=== PATIENT | male | born 1940 | race Caucasian/White ===

== ENCOUNTER → 2024-04-12 07:38 | Outpatient (REF) | payer MEDICARE, OTHER, SELFPAY | LOC: DHCBC/DCA 07:38 | PROVIDERS: ATTENDING PHYSICIAN Internal Medicine; FAMILY PHYSICIAN Family Medicine | DX: I25.10 Atherosclerotic heart disease of native coronary artery without angina pectoris (principal) | CPT/HCPCS: 78452; 93017; A9500 ==

== ENCOUNTER 2024-04-17 14:29 | Emergency (ER) | payer MEDICARE, OTHER, SELFPAY ==
[2024-04-17 14:33] VITALS: BP 153/89
[2024-04-17 14:44] VITALS: BMI 26.5
[2024-04-17 15:00] VITALS: BP 115/71
[2024-04-17 15:14] LABS: % Basophils 0.7 % (0-2); % Eosinophils 2.2 % (0-6); % Immature Granulocytes 0.5 % (0-0.5); % Lymphocytes 17.9 % (20.5-51.1); % Monocytes 8.5 % (1.7-9.3); % Neutrophils 70.2 % (42.2-75.2); Absolute Basophils 0.1 10^3/uL (0-0.2); Absolute Eosinophils 0.2 10^3/uL (0-0.7); Absolute Lymphocytes 1.4 10^3/uL (1.2-3.4); Absolute Monocytes 0.7 10^3/uL (0.1-0.6); Absolute Neutrophils 5.6 10^3/uL (1.4-6.5); Hematocrit 43.4 % (39.0-52.0); Hemoglobin 15.2 g/dL (13.0-18.0); Mean Corpuscular Hgb 31.3 pg (27.0-31.0); Mean Corpuscular Volume 89.5 fL (80.0-94.0); Mean Platelet Volume 10.7 fL (7.4-10.4); Nucleated Red Blood Cells % 0 % (-); Platelet Count 255 10^3/uL (130-400); Red Blood Cell Count 4.85 10^6/uL (4.70-6.10); Red Cell Dist. Width 13.9 % (11.5-14.5)
[2024-04-17 15:43] LABS: ALT (SGPT) 28 U/L (0-50); AST (SGOT) 40 U/L (17-59); Albumin 4.4 g/dl (3.5-5.0); Alkaline Phosphatase 102 U/L (38-126); Blood Urea Nitrogen 16 mg/dl (9-20); Calcium 9.9 mg/dl (8.4-10.2); Carbon Dioxide 22 mmol/L (22-30); Chloride 103 mmol/L (98-107); Estimated Creatinine Clearance 66 ml/min; Glucose 214 mg/dl (70-99); Potassium 3.9 mmol/L (3.5-5.1); Sodium 136 mmol/L (135-145); eGFR > 60.00
[2024-04-17 15:53] LABS: Troponin I < 0.012 ng/ml
--- NOTE | 2024-04-17 16:09 | ED.GENMED ---
History of Present Illness
General
Chief Complaint: Chest Pain
Source: patient and spouse
Exam Limitations: none
Time Seen by Provider: 04/17/24 14:49
Nursing documentation reviewed up to this point in time: agreed with
History of Present Illness
History of Present Illness:
83-year-old male with a past medical history of CAD status post stents, hypertension, hyperlipidemia who presents to the emergency department with his for evaluation of tachycardia and chest pain. Patient notably has been having intermittent
chest pains for almost a year now. He has had an extensive outpatient workup�initially was following with Dr. Peterson for cardiology but recently has made switch to Dr. Coughlin. He had a cardiac catheterization 07/25/2023 which showed no
flow-limiting disease. Recently since switched to Dr. Coughlin's care because he is having persistent chest pains he had a nuclear stress test 04/12/2024 which was apparently reassuring; he is scheduled to have an echocardiogram he says next week. He
is also supposed to have pulmonary function testing. He describes his episodes as tightness in the chest of variable duration. Occasionally exertional but often nonexertional. No consistent trigger noted. He had been on nitroglycerin for his
pain but it was making him dizzy and so he was started instead on long-acting nitrate. Today he comes to the emergency room after one of his typical episodes of chest pain that was accompanied by marked tachycardia. Patient says that he was
sitting at rest and had onset of tightness in his chest consistent with episodes he has been having for the past year. He says that he checked his vital signs during the episode as he typically does. Today instead of a normal heart rate and blood
pressure he noted that his blood pressure was normal but his heart rate was 140. For this reason he came to the emergency room. He is currently chest pain-free and asymptomatic on my assessment. He did not have any associated nausea or vomiting,
diaphoresis. Denies associated dyspnea. Denies any dizziness. Denies any other complaints. His EKG on arrival showed atrial flutter�he denies any known history of A-fib or flutter.
Past History
Past History
ED Past Medical History: CAD, GERD, Hypercholesterolemia and Other (Recurrent small bowel obstructions.)
ED Past Surgical History: Bowel resection (Sigmoid colon resection for perforated diverticulitis.) and Other (Laparoscopic lysis of adhesions July 2011)
Social History
Tobacco: Former smoker
Alcohol: Occasional
Drug: None
Personal:
Living: with family
Employment: Employed
Family History
Family History: Other
Review of Systems
Review of Systems
All Other Systems: ROS reviewed and negative except as documented in HPI and ROS
Constitutional: Denies fever or chills
Respiratory: Denies cough or trouble breathing
Cardiac: Reports chest pain; Denies diaphoresis, palpitations or syncope
ABD/GI: Denies abdominal pain, nausea or vomiting
: Denies flank pain
Musculoskeletal: Denies neck pain or back pain
Neurological: Denies dizzy or headache
Phy Exam
Physical Exam
Physical Exam:
General: Awake, alert, oriented x3; no acute distress
Head: Normocephalic, atraumatic
Eyes: Conjunctiva normal, sclera anicteric
Throat: Airway intact, handling secretions
Neck: Trachea midline, supple without meningismus
Lungs: Clear to auscultation bilaterally, no wheezing, rales, rhonchi
Heart: Regular rate and rhythm, no murmurs, gallops, or rubs
Abd: Soft, non distended, nontender
Neuro: Cranial nerves grossly intact, speech fluid
Skin: no rash
Extremities: No edema in extremities, equal pulses in all extremities
Scores
Heart Failure Risk
Heart Failure Risk Score: Not Applicable
Heart Score for Chest Pain Patients
STEMI patient?: No
History: Slightly or Non-Suspicious
ECG: Normal
Age: >/= 65 years
Risk Factors: >/= 3 Risk Factors or History of CAD
Troponin: </= Normal Limit
Heart Score for Chest Pain Patients: 4
Heart Score Risk: 20.3% MACE over next 6 weeks
Withdrawal Assessment of Alcohol
Withdrawal Assessment Completed?: Not applicable
Course
Orders/Labs/Results
Orders:
Orders
04/17/24
Electrocardiogram (*1) Stat
Comment: ALREADY DONE
04/17/24 14:30
ECG [Electrocardiogram (*1)] Urgent
Reason for Study: Chest Pain
EKG- Treatment ONCE
04/17/24 15:01
Complete Blood Count/With Diff Urgent
Comprehensive Metabolic Panel Urgent
Glycohemoglobin (HgbA1c) Urgent
TSH Urgent
Comment: TSH ADDED ON BY FLOOR 3:40PM 04-17-24
Troponin I Urgent
04/17/24 15:39
Add On- LAB Urgent
Tests Added?: TSH
04/17/24 16:07
Apixaban [Eliquis] 5 mg PO ONCE ONE
Metoprolol Xl [Toprol Xl] 12.5 mg PO NOW STA
04/17/24 16:45
Electrocardiogram (*1) Urgent
Reason for Study: Bradycardia / Tachycardia
EKG- Treatment ONCE
04/17/24 16:50
Add On- LAB Urgent
Tests Added?: hemoglobin A1C
Abnormal Lab Results
04/17/24
15:01
MCH 31.3 H pg
(27.0-31.0)
MPV 10.7 H fL
(7.4-10.4)
Absolute Monos (auto) 0.7 H 10^3/uL
(0.1-0.6)
Lymphocytes % 17.9 L %
(20.5-51.1)
Glucose 214 H mg/dl
(70-99)
04/17/24 15:01
04/17/24 15:01
Vital Signs
Pulse: 86
Resp Rate: 19
Initial and Last Documented VS:
Initial Vital Signs
Temp Pulse Resp BP Pulse Ox
36.7 C 160 20 153/89 96
04/17/24 14:33 04/17/24 14:33 04/17/24 14:33 04/17/24 14:33 04/17/24 14:33
Last Documented Vital Signs
Temp Pulse Resp BP Pulse Ox
36.7 C 86 19 126/92 96
04/17/24 14:33 04/17/24 17:36 04/17/24 17:36 04/17/24 16:33 04/17/24 14:33
MDM/Problems Addressed
Differential Diagnosis Includes:
Tachycardia: Atrial flutter, atrial fibrillation, SVT
Chest pain: Symptomatic atrial flutter, ACS; PE considered less likely with resolution of symptoms, no dyspnea, no pleuritic type pain
MDM/Problems Addressed:
83-year-old male presents to the emergency room for evaluation of chest pain which has been an ongoing issue for him now associated with tachycardia. Vital signs significant for marked tachycardia 150 in triage; he was hypertensive in triage blood
pressure normalized by my assessment. He also had some mild tachypnea which normalized. Pulse ox normal on room air. Afebrile. Physical exam as above. His triage EKG reviewed by me atrial flutter with 2:1 conduction. Heart rate in the 90s on
my assessment appears sinus on the monitor�repeat EKG confirms spontaneous conversion to sinus rhythm. He has no known history of A-fib/flutter. He is on metoprolol chronically for his blood pressure at 12.5 mg daily. Will check basic labs
including a CBC and a CMP. Will check troponin. Check thyroid studies. Will monitor on telemetry reassess after the above.
Labs reviewed: CBC and CMP no clinically significant abnormalities. He does have a random glucose of over 200�does not carry a diagnosis of diabetes. Will start on metformin. Will need to follow-up with PCP�I had a long discussion with the
patient about this. His troponin is undetectable. Has remained in sinus rhythm with no symptoms on reassessment. Case discussed with cardiology�recommended starting patient on Eliquis, increasing metoprolol to 25 mg daily. Can follow-up in the
office as an outpatient. He is already scheduled for an echocardiogram and further outpatient workup for his intermittent chest pains. Patient feels comfortable with this plan. Will provide a dose of Eliquis and metoprolol here and plan likely
for discharge.
Prior to discharge and prior to administration of medications here he did have a brief episode of atrial flutter that once again converted to sinus rhythm. Will provide meds as above and monitor telemetry.
Patient went into atrial fibrillation with RVR heart rate in the 130s confirmed on EKG. Gave him dose of metoprolol and Eliquis and will monitor.
Patient converted to sinus rhythm heart rate now 86. Rest of vitals normal. Patient asymptomatic. Stable for discharge�he will take an additional 12.5 mg p.o. metoprolol tonight tomorrow will start at 25 mg p.o. dose. He will start metformin.
Given Eliquis tonight, he will take next dose starting tomorrow morning. Provided referral to cardiology outpatient. I spoke to the patient and his at length about monitoring symptoms and heart rate and we spoke about return precautions.
They feel very comfortable with this plan. All questions were answered.
Chronic conditions affecting care:
CAD
Acute Exacerbation and/or Progression of Chronic Illness:
Acute hypertensive improved without intervention; give metoprolol for heart rate which should help with blood pressure as well, continue to monitor but no further emergent antihypertensives
Acute Exacerbation and/or Progression of Chronic Illness: HTN
*Pulse Oximetry
Patient hypoxic: no
*EKG
Interpreted by ED Provider?: Yes
Heart Rate: 150
Rate: tachycardiac
Rhythm: atrial flutter
[place]: normal axis
Interval: normal interval
QRS Pattern: normal QRS
Ischemia: non-specific ST changes
*Critical Care Note
Total Time (30-74mins, 75-104mins- exclusive of procedures): Not Applicable
Data Reviewed
Review of Other/Old Records Reveals: Labs and Records
Source: patient, records and spouse
Patient Management
Discussion with other providers: Sample Grinder (Discussed with cardiology)
ED Attending Note
-
Portions of this chart may have been created with voice recognition software.� Occasional wrong word or��sound alike� substitutions may have occurred due to the inherent limitations of voice recognition software.
Discharge Plan
Departure
Patient Disposition: Home (Routine Discharge)
Date of Disposition: 04/17/24
Time of Disposition: 17:35
Patient with high blood pressure during this ER visit?: Yes
Discharge Problem:
Atrial flutter, Chest pain, Hyperglycemia
Instructions: High Blood Sugar, Adult ED, Atrial Fibrillation and Atrial Flutter ED, Chest Pain CBC Follow Up
Prescriptions:
New
metoprolol succinate 25 mg tablet extended release 24 hr
25 mg PO DAILY Qty: 30 0RF
Eliquis 5 mg tablet
5 mg PO BID Qty: 60 0RF
metformin 500 mg tablet
500 mg PO DAILY Qty: 30 0RF
Discontinued
metoprolol succinate 25 mg Tablet Extended Release 24 Hr
12.5 mg PO DAILY
No Action
multivitamin [Daily Multi-Vitamin] 1 EACH tablet
1 ea PO DAILY
aspirin 81 MG tablet,delayed release (DR/EC)
81 mg PO DAILY
simvastatin 40 MG tablet
40 mg PO HS
polyethylene glycol 3350 255 GM powder
17 gm PO HS
docosahexaenoic acid-epa 1 CAP capsule
1 cap PO DAILY
famotidine [Pepcid AC] 20 MG tablet
20 mg PO PRN PRN (Reason: stomach pain)
Referrals:
Sathya Coughlin MD [Active] - Call in 1-3 days for appt
Mounika Rolon DO [Family Provider] -
Activity Restrictions/Additional Instructions:
Thank you for visiting the Emergency Department at [facility].
1. Please schedule a follow up appointment as directed. Call first thing tomorrow morning to make an appointment.
2. If indicated, please take your medications as instructed and indicated on discharge paperwork.
3. If any of your symptoms do not improve, or persist, or become more severe within 6-12 hours, please return to the emergency department for further care.
4. Please return to the emergency department if you develop a headache, neck pain/stiffness, fever greater than 100.4F, chest pain, shortness of breath, persistent nausea, vomiting, slurred speech, difficulty walking, numbness/tingling, weakness,
signs of infection or any other symptoms that are worrisome to you.
Please call [phone] if you have any questions.
Interventions
Interventions:
*Risk Screen - Suicide Last Done: 04/17/24 14:58
*General Assessment Last Done: 04/17/24 14:44
*Neglect/Abuse Screening Last Done: 04/17/24 14:44
ED- Fall Risk Assessment Last Done: 04/17/24 14:58
*ED COVID-19 Vaccine History Last Done: 04/17/24 14:44
ED- Cardiac Assessment Last Done: 04/17/24 14:44
Discharge Date and Time
Print Language: TRISTANIAN
[2024-04-17] MEDS: TOPROL XL 12.5 MG PO (16:30)
[2024-04-17] MEDS: ELIQUIS 5 MG PO (16:30)
[2024-04-17 16:33] VITALS: BP 126/92
[2024-04-17 17:00] VITALS: BP 122/81
[2024-04-17 17:31] LABS: TSH 0.69 uIU/ml (0.47-4.68)
[2024-04-18 10:50] LABS: Glycohemoglobin (HgbA1c) 5.9 % (4.0-5.6)
== END 2024-04-17 17:42 | disposition home or self-care (01) ==
LOC: EMR 14:29
PROVIDERS: EMERGENCY PHYSICIAN Emergency Medicine; FAMILY PHYSICIAN Family Medicine
DX: I48.92 Unspecified atrial flutter (principal); R73.9 Hyperglycemia, unspecified; R07.89 Other chest pain; Z87.891 Personal history of nicotine dependence
CPT/HCPCS: 99284; 80053; 83036; 84443; 84484; 85025; 93005

== ENCOUNTER → 2024-04-19 08:07 | Outpatient (REF) | payer MEDICARE, OTHER, SELFPAY | LOC: HWRCS 08:07 | PROVIDERS: ATTENDING PHYSICIAN Internal Medicine; FAMILY PHYSICIAN Family Medicine | DX: I25.10 Atherosclerotic heart disease of native coronary artery without angina pectoris (principal) | CPT/HCPCS: 93306 ==

== ENCOUNTER 2024-04-19 14:05 | Emergency (ER) | payer MEDICARE, OTHER, SELFPAY ==
[2024-04-19 14:12] VITALS: BP 141/85
[2024-04-19 14:27] LABS: % Basophils 0.9 % (0-2); % Eosinophils 2.6 % (0-6); % Immature Granulocytes 0.4 % (0-0.5); % Lymphocytes 19.9 % (20.5-51.1); % Neutrophils 66.2 % (42.2-75.2); Absolute Basophils 0.1 10^3/uL (0-0.2); Absolute Eosinophils 0.2 10^3/uL (0-0.7); Absolute Lymphocytes 1.5 10^3/uL (1.2-3.4); Absolute Monocytes 0.7 10^3/uL (0.1-0.6); Absolute Neutrophils 4.9 10^3/uL (1.4-6.5); Hematocrit 42.7 % (39.0-52.0); Hemoglobin 14.8 g/dL (13.0-18.0); Mean Corp Hgb Conc. 34.7 g/dL (33.0-37.0); Mean Corpuscular Hgb 31.6 pg (27.0-31.0); Mean Corpuscular Volume 91.2 fL (80.0-94.0); Mean Platelet Volume 10.5 fL (7.4-10.4); Nucleated Red Blood Cells % 0 % (-); Platelet Count 223 10^3/uL (130-400); Red Blood Cell Count 4.68 10^6/uL (4.70-6.10); White Blood Cell Count 7.4 10^3/uL (4.8-10.8)
[2024-04-19 14:37] LABS: INR 1.31; PT 16.1 Sec (11.4-14.6)
[2024-04-19 14:50] LABS: ALT (SGPT) 27 U/L (0-50); AST (SGOT) 35 U/L (17-59); Albumin 4.2 g/dl (3.5-5.0); Alkaline Phosphatase 98 U/L (38-126); Blood Urea Nitrogen 17 mg/dl (9-20); Calcium 9.7 mg/dl (8.4-10.2); Carbon Dioxide 22 mmol/L (22-30); Chloride 106 mmol/L (98-107); Glucose 165 mg/dl (70-99); Potassium 3.8 mmol/L (3.5-5.1); Sodium 137 mmol/L (135-145); Total Protein 6.6 g/dl (6.3-8.2); eGFR > 60.00
[2024-04-19 14:56] LABS: Troponin I < 0.012 ng/ml
[2024-04-19 15:23] VITALS: BP 131/83
[2024-04-19 16:00] VITALS: BP 111/74
--- NOTE | 2024-04-19 16:32 | ED.GENMED ---
History of Present Illness
General
Chief Complaint: Chest Pain
Source: patient, records and spouse
Exam Limitations: none
Time Seen by Provider: 04/19/24 15:14
Nursing documentation reviewed up to this point in time: agreed with
History of Present Illness
History of Present Illness:
Patient is an 83-year-old male who presents to the emergency department complaining of chest pressure, mild shortness of breath and indigestion after walking up his driveway and going into atrial fibrillation. Patient denies lightheadedness or
diaphoresis. Patient denies abdominal pain, nausea, vomiting or diarrhea. Patient denies any leg pain or swelling. Patient was seen in the emergency department 2 days ago and found to be in atrial flutter. Patient was started on Eliquis and
started on 25 mg of Lopressor. Yesterday patient saw his industrial laborer and was increased to 25 mg twice a day. Upon going to see the patient he had spontaneously converted into normal sinus rhythm. Patient is feeling better at this time. Patient
is interested and having an ablation done. Patient also had echocardiogram done earlier in the day. This is essentially unchanged and showed mild aortic stenosis with good ejection fraction. Patient also had a cardiac catheterization in July
which showed 40% lesions in his vessels.
Past History
Past History
ED Past Medical History: CAD, GERD, Hypercholesterolemia and Other (Recurrent small bowel obstructions.)
ED Past Surgical History: Bowel resection (Sigmoid colon resection for perforated diverticulitis.) and Other (Laparoscopic lysis of adhesions July 2011)
Social History
Tobacco: Former smoker
Alcohol: Occasional
Drug: None
Personal:
Living: with family
Employment: Employed
Family History
Family History: Other
Review of Systems
Review of Systems
All Other Systems: ROS reviewed and negative except as documented in HPI and ROS
Constitutional: Reports fatigue; Denies fever or chills
EENT: Reports no symptoms
Respiratory: Reports trouble breathing
Cardiac: Reports chest pain and palpitations; Denies diaphoresis or syncope
ABD/GI: Reports no symptoms
: Reports no symptoms
Musculoskeletal: Reports no symptoms
Skin: Reports no symptoms
Neurological: Reports no symptoms
Hematologic/Lymphatic: Reports no symptoms
Psychiatric: Reports no symptoms
Phy Exam
Physical Exam
Physical Exam:
Physical Exam
General: No apparent distress, alert and appropriate, well nourished, well hydrated
HENT: Normocephalic, supple with no lymphadenopathy, no thyromegaly
Eyes: Clear sclera, conjuctiva without injection
Heart: Regular rhythm and rate. No S3, S4. No murmur. No NVD
Lungs: No respiratory distress, no stridor, lung sounds clear and equal bilaterally, chest wall symmetrical and nontender
Abdomen: Soft, nontender, no organomegaly, no CVA tenderness, BS good
Neuro: Alert and oriented x 3, CN II - XII intact, no motor focality, no cerebellar dysfunction
Skin: no rash
Psychiatric: well kept. interactive and cooperative
Extremities: No edema, cyanosis, tenderness
Scores
Heart Failure Risk
Heart Failure Risk Score: Not Applicable
Heart Score for Chest Pain Patients
STEMI patient?: Not applicable
Withdrawal Assessment of Alcohol
Withdrawal Assessment Completed?: Not applicable
Course
Orders/Labs/Results
Orders:
Orders
04/19/24 14:07
EKG [Electrocardiogram (*1)] Urgent
Reason for Study: Chest Pain
EKG- Treatment ONCE
04/19/24 14:18
Complete Blood Count/With Diff Urgent
Comprehensive Metabolic Panel Urgent
PT/INR [Prothrombin Time] Urgent
Troponin I Urgent
04/19/24 15:32
Electrocardiogram (*1) Urgent
Reason for Study: Chest Pain
EKG- Treatment ONCE
Abnormal Lab Results
04/19/24
14:18
RBC 4.68 L 10^6/uL
(4.70-6.10)
MCH 31.6 H pg
(27.0-31.0)
MPV 10.5 H fL
(7.4-10.4)
Absolute Monos (auto) 0.7 H 10^3/uL
(0.1-0.6)
Lymphocytes % 19.9 L %
(20.5-51.1)
Monocytes % 10.0 H %
(1.7-9.3)
PT 16.1 H Sec
(11.4-14.6)
Glucose 165 H mg/dl
(70-99)
04/19/24 14:18
04/19/24 14:18
Vital Signs
Initial and Last Documented VS:
Initial Vital Signs
Temp Pulse Resp BP Pulse Ox
98.0 F 125 16 141/85 98
04/19/24 14:12 04/19/24 14:12 04/19/24 14:12 04/19/24 14:12 04/19/24 14:12
Last Documented Vital Signs
Temp Pulse Resp BP Pulse Ox
98.0 F 62 15 111/74 96
04/19/24 14:12 04/19/24 16:30 04/19/24 16:30 04/19/24 16:00 04/19/24 16:30
*Pulse Oximetry
Patient hypoxic: no
*EKG
Interpreted by ED Provider?: Yes
EKG Intrepretation Date: 04/19/24
EKG Intrepretation Time: 16:36
Interpretation: abnormal
Comparison EKG: changes noted
Heart Rate: 140
Rate: tachycardiac
Rhythm: a-fib
[place]: left axis deviation
Interval: normal QT interval
QRS Pattern: normal QRS
Ischemia: non-specific ST changes
*Core Machine Operator Interpretation
Rate: normal
Interpretation: normal
Heart Rate: 70
Rhythm: sinus
*Critical Care Note
Total Time (30-74mins, 75-104mins- exclusive of procedures): Not Applicable
Update Note
Update Note:
Patient spontaneously converted. Patient is concerned about going home and going into atrial fibrillation again. Spoke with cardiology they will reach out to them in 2 days to schedule an office appointment with regards to ablation. Patient is to
stay on the same medications.
ED Attending Note
-
Portions of this chart may have been created with voice recognition software.� Occasional wrong word or��sound alike� substitutions may have occurred due to the inherent limitations of voice recognition software.
Discharge Plan
Departure
Patient Disposition: Home (Routine Discharge)
Date of Disposition: 04/19/24
Time of Disposition: 16:37
Patient with high blood pressure during this ER visit?: No
Condition: Good
Covid-19: Not Applicable
Discharge Problem:
Paroxysmal atrial fibrillation
Instructions: Atrial Fibrillation and Atrial Flutter ED
Prescriptions:
No Action
multivitamin [Daily Multi-Vitamin] 1 EACH tablet
1 ea PO DAILY
aspirin 81 MG tablet,delayed release (DR/EC)
81 mg PO DAILY
simvastatin 40 MG tablet
40 mg PO HS
polyethylene glycol 3350 255 GM powder
17 gm PO HS
docosahexaenoic acid-epa 1 CAP capsule
1 cap PO DAILY
famotidine [Pepcid AC] 20 MG tablet
20 mg PO PRN PRN (Reason: stomach pain)
metoprolol succinate 25 mg tablet extended release 24 hr
25 mg PO DAILY Qty: 30 0RF
Eliquis 5 mg tablet
5 mg PO BID Qty: 60 0RF
metformin 500 mg tablet
500 mg PO DAILY Qty: 30 0RF
Referrals:
Mounika Rolon, [Family Provider] - As needed
Activity Restrictions/Additional Instructions:
Cardiology will reach out to you to schedule you for an appointment early next week. Dr. Coughlin will discuss ablation with you at that time. In the meantime continue the Lopressor 25 mg twice a day as well as the Eliquis.
Interventions
Interventions:
*Nursing Disposition Last Done: 04/19/24 16:55
ED- Cardiac Assessment Last Done: 04/19/24 15:07
Discharge Date and Time
Discharge Date/Time: 04/19/24 16:55
Print Language: NORWEGI[place]
== END 2024-04-19 16:55 | disposition home or self-care (01) ==
LOC: EMR 14:05
PROVIDERS: Emergency Medicine; EMERGENCY PHYSICIAN Emergency Medicine; FAMILY PHYSICIAN Family Medicine
DX: I48.0 Paroxysmal atrial fibrillation (principal); I48.91 Unspecified atrial fibrillation; Z79.01 Long term (current) use of anticoagulants; Z79.899 Other long term (current) drug therapy; I25.10 Atherosclerotic heart disease of native coronary artery without angina pectoris; K21.9 Gastro-esophageal reflux disease without esophagitis; E78.00 Pure hypercholesterolemia, unspecified; I35.0 Nonrheumatic aortic (valve) stenosis; Z87.891 Personal history of nicotine dependence
CPT/HCPCS: 99283; 80053; 84484; 85025; 85610; 93005

== ENCOUNTER → 2024-04-30 06:35 | Outpatient (REF) | payer MEDICARE, OTHER, SELFPAY | LOC: RSP 06:35 | PROVIDERS: ATTENDING PHYSICIAN Internal Medicine; FAMILY PHYSICIAN Family Medicine | DX: R06.02 Shortness of breath (principal) | CPT/HCPCS: 94727; 94729; 88738; 94010 ==

== ENCOUNTER → 2024-06-11 10:46 | Outpatient (REF) | payer MEDICARE, OTHER, SELFPAY ==
[2024-06-11 11:18] LABS: % Basophils 0.7 % (0-2); % Eosinophils 2.9 % (0-6); % Immature Granulocytes 0.3 % (0-0.5); % Lymphocytes 16.6 % (20.5-51.1); % Neutrophils 68.5 % (42.2-75.2); Absolute Basophils 0.1 10^3/uL (0-0.2); Absolute Eosinophils 0.2 10^3/uL (0-0.7); Absolute Lymphocytes 1.2 10^3/uL (1.2-3.4); Absolute Monocytes 0.8 10^3/uL (0.1-0.6); Hematocrit 42.4 % (39.0-52.0); Hemoglobin 14.5 g/dL (13.0-18.0); Mean Corp Hgb Conc. 34.2 g/dL (33.0-37.0); Mean Corpuscular Hgb 32.2 pg (27.0-31.0); Mean Platelet Volume 10.7 fL (7.4-10.4); Nucleated Red Blood Cells % 0 % (-); Platelet Count 213 10^3/uL (130-400); Red Blood Cell Count 4.51 10^6/uL (4.70-6.10); Red Cell Dist. Width 14.7 % (11.5-14.5); White Blood Cell Count 7.3 10^3/uL (4.8-10.8)
[2024-06-11 11:31] LABS: ALT (SGPT) 28 U/L (0-50); AST (SGOT) 28 U/L (17-59); Albumin 4.4 g/dl (3.5-5.0); Alkaline Phosphatase 76 U/L (38-126); Blood Urea Nitrogen 20 mg/dl (9-20); Calcium 9.9 mg/dl (8.4-10.2); Carbon Dioxide 31 mmol/L (22-30); Chloride 99 mmol/L (98-107); Glucose 103 mg/dl (70-99); Potassium 4.3 mmol/L (3.5-5.1); Sodium 139 mmol/L (135-145); Total Protein 6.7 g/dl (6.3-8.2); eGFR > 60.00
== END ==
LOC: SDSPAT 10:46
PROVIDERS: ATTENDING PHYSICIAN Internal Medicine Cardiovascular Disease; FAMILY PHYSICIAN Family Medicine; OTHER PHYSICIAN Internal Medicine
DX: Z01.818 Encounter for other preprocedural examination (principal); I48.0 Paroxysmal atrial fibrillation; R06.02 Shortness of breath; I25.10 Atherosclerotic heart disease of native coronary artery without angina pectoris; I35.0 Nonrheumatic aortic (valve) stenosis; I10 Essential (primary) hypertension
CPT/HCPCS: 36415; 80053; 85025; 86850; 86900; 86901; 93005

== ENCOUNTER 2024-06-17 05:58 | Day surgery (SDC) | payer MEDICARE, OTHER, SELFPAY ==
[2024-06-11 10:57] VITALS: BMI 26.2
[2024-06-17] VITALS (8 sets, daily range): BP systolic 105–145; BP diastolic 54–71; BMI 26.2
[2024-06-17 08:53] LABS: ACT-LR - POC 321 Seconds (116-155)
[2024-06-17 09:12] LABS: ACT-LR - POC 361 Seconds (116-155)
[2024-06-17 09:37] LABS: ACT-LR - POC 332 Seconds (116-155)
[2024-06-17 10:10] LABS: ACT-LR - POC 321 Seconds (116-155)
--- NOTE | 2024-06-17 10:25 | ITS.CL.ABL ---
[facility] - Ablation
Ablation
Procedure Report:
AFIB ablation:
Mr. Morfin is a very pleasant 83 yr old gentleman with symptomatic paroxysmal AF presented today to the EP lab for atrial fibrillation ablation.
Date of the Procedure:
06/17/2024
Indications:
Paroxysmal atrial fibrillation
Pre-Operative Diagnosis:
Paroxysmal atrial fibrillation
Post-Operative Diagnosis:
Paroxysmal atrial fibrillation
Procedure Performed:
Atrial fibrillation ablation with Pulsed-Field approach for pulmonary vein isolation
Performing Physician:
Yessica Vargas MD
Assistants:
EP staff
Anesthesia:
See anesthesia records
Detailed Description of the Procedure:
Written informed consent was obtained from the patient after a full explanation of the risks and benefits of the procedure including the risks of sedation and anesthesia.
The patient was brought to the electrophysiology laboratory in stable condition in fasting state. Continuous electrocardiographic and hemodynamic monitoring was initiated.
The initial rhythm was normal sinus rhythm.
The procedure site was meticulously prepared with surgical scrub and allowed to dry with no pooling. Sterile draping was applied to cover the procedure site. The image intensifier was draped with sterile bag and positioned over the patient. After
infusion of local anesthetic, vascular access was obtained under ultrasound guidance and sheaths were placed over guide wire as detailed below.
Sheath and Catheter Placement:
The following catheters / sheaths were placed
Sheaths:
��������� 15Fr steerable sheath (FlexCath Cross�, Zkattertronic) in right femoral vein in right femoral vein
��������� 9Fr in right femoral vein
��������� 7Fr in right femoral vein
Catheters:
��������� GEOVANY HD Grid mapping catheter � at locations of RA, LA
��������� PulseSelect� PFA catheter
��������� ICE catheter -AcuNav - at locations of RA, SVC, and RV.
��������� Decapolar Bard catheter in RA and CS
Intracardiac ECHO:
An 8-Urdu AcuNav intracardiac ECHO (ICE) probe was advanced through the 9-Urdu sheath in the right femoral vein into the right atrium under fluoroscopic and ICE ultrasound image guidance and a baseline ECHO study was performed. The left atrial
size was mildly dilated. There was moderate tricuspid regurgitation. The aortic valve was extensively calcified and sclerotic with at least moderate stenosis. There was normal left ventricular systolic functions. There is trace pericardial effusion.
All the four veins were identified and has flow identified.
During the procedure, ICE was used for monitoring of complications, guidance of trans-septal puncture, monitor the catheter position and tracking ablation lesions. No change in the pericardial space noted throughout the procedure.
Trans-septal Puncture:
Heparin was initiated and infused to maintain appropriate ACT. A J-tipped guidewire was advanced through the 8-Urdu sheath in the right femoral vein into the superior vena cava under fluoroscopic and ICE guidance. The 8-Urdu sheath was exchanged
for a FlexCath Cross sheath which was advanced into the superior vena cava. An [employer] transseptal access system was utilized to perform the trans-septal puncture. The apparatus was withdrawn until it was in contact with the fossa ovalis. The
position was adjusted based on fluoroscopy and ultrasound images from ICE. Under fluoroscopic, hemodynamic and ICE ultrasound guidance, left atrium was cannulated by advancing the needle. Once atrial septum was cannulated, the needle was pulled back
and a guide wire was advanced through the needle into the left atrium. The guide wire was advanced into the left superior pulmonary vein. Both the sheath and the dilator was advanced into the left atrium. The dilator with the needle was withdrawn.
Blood was aspirated from the FlexCath cross sheath and arterial blood confirmed. The sheath was flushed. Saline injection noted into the left atrium on ICE. The mapping catheter was advanced in the Agilis sheath into the left pulmonary vein. Left
atrial pressure was measured.
3D Electroanatomic Mapping:
Using the HD Grid catheter advanced through sheath into the left atrium, an electroanatomic map (EAM) of the left atrium was created using [employer] mapping system. The map was used for localization of catheter position and tacking of ablation
lesions. The EAM of the left atrium showed 4 pulmonary veins with two left sided and two right sided veins.
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 The EAM showed no significant scar in the left atrium.
The LA was dilated in size.
Following the EAM, preparation were made for ablation.
Ablation:
Ablation # 1: Pulmonary vein Isolation:
Using PulseSelect� pulsed field ablation system, pulmonary vein isolation was achieved. First the ablation catheter was placed in the LSPV and ostial ablation lesions were performed in a counter clock wynne approach all around the PV ostium
circumferentially. Then the catheter was placed on the antral location and multiple ablation lesions were placed circumferentially on the antrum of the vein.
In the similar fashion, the LIPV were isolated.
Then the catheter was moved to right sided veins. The phrenic nerve was paced before and after the ablation on the right sided vein yanci the anterior ablations.
The ostial and antral ablations were placed as noted above.
Ablation # 2: Posterior wall isolation:
Given the abnormal aneurysmal LIPV, decision was made to isolate the posterior wall rather than the ablation of the thin aneurysmal tissue. Using the pulsed field ablation catheter, the catheter was placed on the posterior wall and moved around the
posterior wall to have adequate contact and ablations were placed isolating the posterior wall.
Post ablation Electroanatomic mapping:
Once the sinus rhythm achieved, the LA was mapped with HD grid in detail.
The veins were isolated and normal electrograms noted in the posterior wall. Excellent WACA ablation noted with excellent demarcation of LA myocardium and isolated antral tissue. There was a small area of the carinal area which was anterior to the
LIP vein and thought to be a Coumadin ridge and there was no signal in the vein itself. Given the abnormal anatomy of the vein and the aneurysmal dilatation, decision was made to not to further ablate that area. There was dissociated signals were
noted in the veins as well.
EPS and Confirmation of the PVI and bidirectional block:
Following achievement of entrance block at the pulmonary veins, pacing from the HD catheter in each of the four veins at 10 milliamps for 2 milliseconds showed entrance and exit block. All PVI were rechecked at the end of the case and remained
isolated with dissociated and local capture with pacing. Entrance and exit block were demonstrated in all veins.
Procedure End
ICE study was done again that showed no epicardial accumulation. No complications noted.
Following the completion of the EP study, catheters were removed. Protamine 30 mg was given at the end of the procedure and ACT was checked repeatedly. The sheaths were removed and hemostasis achieved with manual compression after acceptable ACT is
achieved.
Left atrial Pressure:
Pre ablation: Mean LA pressure was 8mmHg
Post ablation: Mean LA pressure was 8mmHg
Post ablation: Mean RA pressure was 1mmHg
Estimated Blood loss:
<10 cc
Specimens Removed:
None.
Implants / Devices:
None
Urine output:
None
Packs / Drains/ Tubes:
None
Instrument / Sponge Count Correct:
Yes
Complications of the Procedure:
None
Condition of Patient at Time of Transfer:
Hemodynamically stable with no neurological or vascular compromise.
Summary:
Successful atrial fibrillation ablation with Pulsed Field approach for pulmonary vein isolation and Posterior wall isolation.
Figures from the Procedure:
Figure 1: The electroanatomic mapping (EAM) of the left atrium with bipolar voltage (purple indicates normal electrical activity with leon as no myocardial muscle electric activity indicating a line of block or scar.
[2024-06-17] MEDS: TYLENOL 650 MG PO ×2 (11:12→14:58)
[2024-06-17] MEDS: ANESTHETIC LOZENGE 1 LOZENGE PO (12:39)
--- NOTE | 2024-06-17 14:30 | W.PN.UPDATE ---
Update Note
Progress Note Update
Pt seen post PFA. Right groin without ht/bleeding, non tender. OOB ambulating. Post EKG SB 40s but tele now with NSR 60s. Resume eliquis tonight and continue other meds as before. Followup at [facility] arranged. Home later today if groin site/tele remain
stable.
--- NOTE | 2024-06-17 15:22 | PTCARENOTE ---
Pt oozed after ambulating to the bathroom, approximately 2 mls. Pressure held for 10 minutes. Steri strips and pressure dressing applied per Magali WRIGHT. Pt on bedrest for 30 minutes longer right now. Will cont to assess .
== END 2024-06-17 16:07 | disposition home or self-care (01) ==
LOC: CATH 05:58
PROVIDERS: ATTENDING PHYSICIAN Internal Medicine Cardiovascular Disease; FAMILY PHYSICIAN Family Medicine; OTHER PHYSICIAN Internal Medicine
DX: I48.0 Paroxysmal atrial fibrillation (principal); I10 Essential (primary) hypertension; Z87.891 Personal history of nicotine dependence; E78.5 Hyperlipidemia, unspecified; N40.0 Benign prostatic hyperplasia without lower urinary tract symptoms; I25.10 Atherosclerotic heart disease of native coronary artery without angina pectoris; Z95.5 Presence of coronary angioplasty implant and graft; Z87.19 Personal history of other diseases of the digestive system; F41.9 Anxiety disorder, unspecified; Z79.899 Other long term (current) drug therapy; Z79.01 Long term (current) use of anticoagulants; Z85.46 Personal history of malignant neoplasm of prostate
CPT/HCPCS: C1732; C1894; C1730; C1733; C1769; C1892; C1759; 85347; 86900; 86901; 93005; 93656; 93657

== ENCOUNTER → 2024-07-19 04:00 | Outpatient (REF) | payer MEDICARE, OTHER, SELFPAY | LOC: DHSLP 04:00 | PROVIDERS: ATTENDING PHYSICIAN Internal Medicine; FAMILY PHYSICIAN Family Medicine | DX: G47.33 Obstructive sleep apnea (adult) (pediatric) (principal) | CPT/HCPCS: 95806 ==